=== PATIENT | male | born 1985 | race Two or more races ===

== ENCOUNTER 2022-07-14 22:40 | Emergency (ER) | payer SELFPAY ==
[2022-07-15] MEDS ORDERED: Ibuprofen 800 MG Tab PO ONE (01:38)
[2022-07-15] MEDS ORDERED: Acetaminophen/HYDROcodone 325-5 MG Tab PO ONE (01:39)
== END 2022-07-15 02:09 | disposition home or self-care (01) ==
LOC: MW.ED 22:40
DX: S82.832A Other fracture of upper and lower end of left fibula, initial encounter for closed fracture (principal); W00.0XXA Fall on same level due to ice and snow, initial encounter; W22.8XXA Striking against or struck by other objects, initial encounter
CPT/HCPCS: 29515; 71100; 73562; 73610; 99283; A9270